=== PATIENT | female | born 1990 | race Caucasian/White ===

== ENCOUNTER 2016-09-07 13:08 | Emergency (ER) | payer BC ==
[~2016-09-07] VITALS: Ht 160 cm; Wt 48.1 kg
[2016-09-07] MEDS ORDERED: HYDROCODONE/APAP 5/325MG 1 EACH TABLET PO ONE (13:30)
[2016-09-07] MEDS ORDERED: LIDOCAINE 2% 20 ML MDV TP ONE (13:30)
[2016-09-07] MEDS ORDERED: TDAP [DIPH/PERTUSSIS/TET] 0.5 ML VIAL IM ONE ×2 (13:30→13:35)
[2016-09-07] MEDS ORDERED: HYDROCODONE/APAP 5/325MG 1 EACH TABLET ONE (13:35)
[2016-09-07 15:41] VITALS: BP 122/74
== END 2016-09-07 15:48 | disposition home or self-care (01) ==
LOC: MERGE 13:11 → ER 13:11
DX: S61.412A Laceration without foreign body of left hand, initial encounter (principal); W25.XXXA Contact with sharp glass, initial encounter; Y93.89 Activity, other specified; Y92.89 Other specified places as the place of occurrence of the external cause; Y99.8 Other external cause status
CPT/HCPCS: 73130-TC; 90715; A4606; Z7610